=== PATIENT | male | born 1970 | race Caucasian/White ===

== ENCOUNTER → 2020-05-05 | Outpatient (CLI) | payer OTHER ==
[~2020-05-05] MED LIST: CETI10TA74 PO; GADOTERATE 7.5 MMOL/15ML VIAL. IVP ONE
--- NOTE | 2020-05-05 10:37 | KCIC ---
MRI THORACIC SPINE WITHOUT AND WITH IV CONTRAST DATE: 05/05/2020 8:05 AM INDICATION: T3 LESION. [facility] for [facility] T[facility]. TECHNIQUE: Multi-planar multi-weighted magnetic resonance imaging of the thoracic spine was performed with and without contrast using the standard protocol. 20 cc of Clariscan contrast was administered intravenously. COMPARISON: None. FINDINGS: The thoracic spine is normally aligned. No acute fracture. Vertebral body heights are maintained with out compression deformity. Mild multilevel degenerative disc desiccation and disc height loss. Degene rative endplate edema at T5-6 and T6-7. 1.5 cm enhancing lesion in the T3 vertebral body. No other suspicious enhancing lesions are seen. The spinal cord is normal in signal intensity. The conus medullaris terminates at a normal level. No soft tissue abnormality within the visualized chest or abdomen. The visualized thoracic aorta is n ormal caliber. Few tiny disc bulges. No significant neuroforaminal narrowing or spinal canal stenosis. IMPRESSION: 1.5 cm enhancing lesion in the T3 vertebral body. No other suspicious enhancing lesions are seen. In the absence of known malignancy this probably represents an atypical hemangioma, however a 3 month fo llow-up MRI is recommended to assess stability as a neoplastic process is not entirely excluded. Electronically signed by: Vipin Thakkar MD (05/05/2020 10:34 AM) [id number]
== END ==
LOC: KCIC MRI 07:57
PROVIDERS: ATTEND Family Medicine
DX: M48.8X4 Other specified spondylopathies, thoracic region (principal)
CPT/HCPCS: 72157; A9575

== ENCOUNTER → 2020-09-12 | Outpatient (CLI) | payer OTHER ==
--- NOTE | 2020-09-12 10:33 | KCIC ---
MRI THORACIC SPINE WITHOUT AND WITH IV CONTRAST DATE: 09/12/2020 8:45 AM INDICATION: T3 VERTEBRAL BODY LESION. Neck pain, follow up to T3 vertebral body lesion. TECHNIQUE: Multi-planar multi-weighted magnetic resonance imaging of the thoracic spine was performed with and without contrast using the standard protocol. 18 cc of Clariscan contrast was administered intravenously. COMPARISON: 05/05/2020. FINDINGS: The thoracic spine is normally aligned. No acute fracture. Vertebral body heights are maintained with out compression deformity. Mild multilevel degenerative disc desiccation and disc height loss. Degene rative endplate edema at T5-6 and T6-7. Stable 1.5 cm enhancing lesion in the T3 vertebral body. No other suspicious enhancing lesions are se en. The spinal cord is normal in signal intensity. The conus medullaris terminates at a normal level. No soft tissue abnormality within the visualized chest or abdomen. The visualized thoracic aorta is n ormal caliber. Few small disc bulges. No significant neuroforaminal narrowing or spinal canal stenosis. IMPRESSION: Stable 1.5 cm enhancing lesion in the T3 vertebral body, favored to represent a benign process such a s an atypical hemangioma. No other suspicious enhancing lesions are seen. Electronically signed by: Vipin Thakkar MD (09/12/2020 10:30 AM) [id number]
== END ==
LOC: KCIC MRI 08:31
PROVIDERS: ATTEND Family Medicine
DX: M51.34 Other intervertebral disc degeneration, thoracic region (principal)
CPT/HCPCS: 72157; A9575